=== PATIENT | female | born 1930 | race Caucasian/White ===

== ENCOUNTER 2019-08-07 11:04 | Emergency (ER) | payer OTHER ==
[~2019-08-07] VITALS: Ht 157.5 cm; Wt 61.8 kg
--- NOTE | 2019-08-07 12:16 | REP ---
CT BRAIN WITHOUT CONTRAST: HISTORY: CVA. No comparison imaging available. CT FINDINGS: Preliminary digital immigration officer radiograph is unremarkable. The patient is edentulous. 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 There is extensive vascular calcification in the carotid siphons bilaterally and in the distal vertebral arteries bilaterally. No intraorbital abnormality is seen. The visualized paranasal sinuses are clear. On soft tissue window settings, there is fairly extensive dural calcification in the falx. There is diffuse cerebral atrophy. There is no evidence of intracranial hemorrhage. There is a small zone of low density in the white matter of the genu of the internal capsule on the left and possibly on the right consistent with old lacunar infarct. There is cerebellar atrophy diffusely as well. No definite acute infarct is seen. No mass or midline shift is observed. 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 No hemorrhage seen. Extensive vascular calcification. Diffuse cerebral and cerebellar atrophy. Electronically Signed by Philip Cameron MD 08/07/2019 05:16 P
--- NOTE | 2019-08-07 12:19 | REP ---
CHEST, SINGLE VIEW: Single view of the chest is performed. There are no prior studies. There is mild elevation of the right hemidiaphragm. There is no acute infiltrate or pulmonary edema. The cardiac silhouette is mildly prominent. Small tortuosity of the thoracic aorta. The mediastinal silhouette is unremarkable. IMPRESSION: Mild cardiomegaly. No acute infiltrate. Electronically Signed by Seth Bae MD 08/08/2019 09:54 A
[2019-08-07 13:05] LABS: BASO % 0.7 % (0.0-1.0); EOS % 0.2 % (0.0-3.0); HEMATOCRIT 34.6 % (36.0-47.0); HEMOGLOBIN 11.3 g/dl (12.0-15.5); LYMPH # 1.3 10^3/uL (1.5-5.0); LYMPH % 22.4 % (24.0-44.0); MEAN CORPUSCULAR HEMOGLOBIN 31.3 pg (27.0-33.0); MEAN CORPUSCULAR HGB CONC 32.7 g/dl (32.0-36.5); MEAN CORPUSCULAR VOLUME 95.8 fl (80.0-96.0); MONO # 0.4 10^3/uL (0.0-0.8); MONO % 6.1 % (0.0-5.0); NEUTROPHILS % 70.3 % (36.0-66.0); PLATELET COUNT, AUTOMATED 262 10^3/uL (150-450); RED BLOOD COUNT 3.61 10^6/uL (4.00-5.40); WHITE BLOOD COUNT 5.7 10^3/uL (4.0-10.0)
[2019-08-07 13:25] LABS: BLOOD UREA NITROGEN 23 MG/DL (7-18); CALCIUM LEVEL 8.9 MG/DL (8.8-10.2); CARBON DIOXIDE LEVEL 23 MEQ/L (21-32); CHLORIDE LEVEL 109 MEQ/L (98-107); CPK CREATINE PHOSPHOKINASE 69 U/L (26-192); CREATININE FOR GFR 1.34 MG/DL (0.55-1.30); GLOMERULAR FILTRATION RATE 39.9 (>32); GLUCOSE, FASTING 111 MG/DL (70-100); MB/CK RELATIVE INDEX 1.45 (< OR =4); POTASSIUM SERUM 4.7 MEQ/L (3.5-5.1); SODIUM LEVEL 141 MEQ/L (136-145); TROPONIN I < 0.02 NG/ML (< 0.10)
[2019-08-07 13:30] LABS: INR 1.14; PROTHROMBIN TIME 14.4 SECONDS (11.8-14.0)
[2019-08-07 13:31] LABS: PARTIAL THROMBOPLASTIN TIME 32.5 SECONDS (25.0-38.4)
[2019-08-07 15:10] VITALS: BP 126/60
--- NOTE | 2019-08-07 21:47 | ECGEPIP ---
[facility] - ED Test Date: 2019-08-07 Pat Name: CHARISSA BRINK Department: Room: - Gender: Female Tier Over: NAMRATA : [id number] Requested By: Sabine Rees Order Number: [id number] Reading MD: Mike Schulte Measurements Intervals [place] Rate: 72 P: 55 [place]: 195 QRS: -20 QRSD: 85 T: 14 QT: 369 QTc: 406 Interpretive Statements SINUS RHYTHM WITH FREQUENT VENTRICULAR PREMATURE COMPLEXES Minimal ST depression lateral leads Baseline artifact Comparison tracing not on file Electronically Signed on 08-07-2019 21:47:09 EDT by Mike Schulte
== END 2019-08-07 15:12 | disposition home or self-care (01) ==
LOC: M ED 11:04
DX: G45.9 Transient cerebral ischemic attack, unspecified (principal); I51.7 Cardiomegaly